=== PATIENT | female | born 1990 | race Caucasian/White ===

== ENCOUNTER 2019-06-09 20:40 | Emergency (ER) | payer OTHER ==
[~2019-06-09] VITALS: Ht 162.6 cm; Wt 59.0 kg
[~2019-06-09 20:40] MED LIST: ACET500; Flomax0.4 MG PO; HYDACE5 PO; IBUP200; KETO10 PO; LEVSOD50 PO; ONDA4 PO; OXYACE5T PO; PROM25 PO; Percocet 5-3251 EACH PO; SULTRIDS PO; TAMS.4ER PO; YAZ BIRTH CONTROL; Zofran Odt4 MG SL
[2019-06-09 21:03] LABS: Source, Urine Clean Catch
[2019-06-09 21:05] LABS: Bilirubin, Urine Neg (Neg); Blood, Urine 5+ (Neg); Glucose Qualitative, Urine Neg (Neg); Ketones, Urine 4+ (Neg); Leukocyte Esterase, Urine 3+ (Neg); Nitrite, Urine Neg (Neg); Protein, Urine 3+ (Neg); Urobilinogen, Urine 1+ (Normal)
[2019-06-09 21:09] LABS: Appearance, Urine Cloudy (Clear); Color, Urine Yellow (P-Yellow)
[2019-06-09 21:16] LABS: Bacteria Few /hpf; Red Blood Cells, Urine TNTC /hpf (0-2); Squamous Epithelial Cells Not Seen /hpf (Few); White Blood Cells, Urine TNTC /hpf (0-5)
[2019-06-09 21:17] LABS: BASOPHILS ABSOLUTE AUTO 0.03 K/mm3 (0.00-0.23); BASOPHILS PERCENT AUTO 0 % (0-2); EOSINOPHILS ABSOLUTE AUTO 0.03 K/mm3 (0.00-0.68); EOSINOPHILS PERCENT AUTO 0 % (0-6); Hematocrit 36.9 % (33.0-51.0); Hemoglobin 12.3 g/dL (11.5-16.0); IMMATURE GRAN ABSOLUTE AUTO 0.06 K/mm3 (0.00-0.10); IMMATURE GRAN PERCENT AUTO 0 % (0-1); LYMPHOCYTES ABSOLUTE AUTO 2.08 K/mm3 (0.84-5.20); LYMPHOCYTES PERCENT AUTO 14 % (21-46); MONOCYTES ABSOLUTE AUTO 0.81 K/mm3 (0.16-1.47); MONOCYTES PERCENT AUTO 6 % (4-13); Mean Corpuscular HGB 30.5 pg (26.0-34.0); Mean Corpuscular HGB Conc 33.3 g/dL (31.5-36.5); Mean Corpuscular Volume 92 fL (80-100); Mean Platelet Volume 9.3 fL (9.1-12.4); NEUTROPHILS ABSOLUTE AUTO 11.56 K/mm3 (1.96-9.15); NEUTROPHILS PERCENT AUTO 79 % (41-73); Platelet Count 241 K/mm3 (150-400); RDW Coefficient Variation 11.5 % (11.7-14.2); RDW Standard Deviation 38.8 fL (35.1-46.3); Red Blood Cell Count 4.03 M/mm3 (3.80-5.20); White Blood Cell Count 14.57 K/mm3 (4.00-11.30)
[2019-06-09 21:34] LABS: Alanine Aminotransfer (ALT/SGP 21 U/L (12-78); Albumin, Blood 4.8 g/dL (3.4-5.0); Albumin/Globulin Ratio 1.5 (0.8-1.8); Alk Phos 67 U/L (50-136); Anion Gap 12 mmol/L (6-16); Aspartate Aminotrans (AST/SGOT 21 U/L (12-37); Bilirubin, Total 0.8 mg/dL (0.1-1.0); Blood Urea Nitrogen 12 mg/dL (8-24); Bun/Creatinine Ratio 17.5 (12.0-20.0); CO2, Blood 23 mmol/L (21-32); Calcium, Blood 9.2 mg/dL (8.5-10.1); Chloride, Blood 107 mmol/L (98-108); Creatinine, Blood 0.68 mg/dL (0.40-1.00); Globulin, Blood 3.2 g/dL (2.2-4.0); Glomerular Filtration Rate >60 (60-); Glucose, Blood 82 mg/dL (70-99); Potassium, Blood 3.3 mmol/L (3.5-5.5); Sodium, Blood 142 mmol/L (136-145)
[2019-06-09] MEDS ORDERED: NITR100CA PO (22:58)
== END 2019-06-09 23:03 | disposition home or self-care (01) ==
LOC: ER 20:40
PROVIDERS: Physician Assistant
DX: N20.0 Calculus of kidney (principal); Z88.0 Allergy status to penicillin; Z88.2 Allergy status to sulfonamides; Z88.8 Allergy status to other drugs, medicaments and biological substances
CPT/HCPCS: 36415; 76770; 80053; 81001; 81025; 85025; 87077; 87086; 87186; 96374; 96375; 99284-25; J1885; J2405

== ENCOUNTER 2020-05-29 20:53 | Emergency (ER) | payer OTHER ==
[~2020-05-29] VITALS: Ht 162.6 cm; Wt 63.0 kg
[~2020-05-29 20:53] MED LIST changes: +NITR100CA PO; +ONDA4ODT MM
[2020-05-29] MEDS ORDERED: POTCIT10 PO (21:15)
[2020-05-29] MEDS ORDERED: Zovirax800 MG PO (22:33)
[2020-05-29] MEDS ORDERED: Prednisone20 MG PO (22:33)
== END 2020-05-29 22:56 | disposition home or self-care (01) ==
LOC: ER 20:53
DX: R20.0 Anesthesia of skin (principal); Z79.899 Other long term (current) drug therapy; Z88.0 Allergy status to penicillin; Z88.2 Allergy status to sulfonamides; Z88.1 Allergy status to other antibiotic agents; Z88.8 Allergy status to other drugs, medicaments and biological substances; Z87.442 Personal history of urinary calculi
CPT/HCPCS: 99283; A9270; J7512

== ENCOUNTER → 2021-01-13 | Outpatient (CLI) | payer OTHER ==
[~2021-01-13] MED LIST changes: +POTCIT10 PO; +Prednisone20 MG PO; +Zovirax800 MG PO
[2021-01-15 19:14] LABS: CORONAVIRUS (COVID19) CSH-NRL Positive (Negative)
== END ==
LOC: LAB 11:55 → LAB SHORT 11:55
PROVIDERS: Physician Assistant Medical
DX: Z20.822 Contact with and (suspected) exposure to COVID-19 (principal); Z88.0 Allergy status to penicillin; Z88.2 Allergy status to sulfonamides; Z88.8 Allergy status to other drugs, medicaments and biological substances
CPT/HCPCS: U0003

== ENCOUNTER → 2022-01-08 | Outpatient (CLI) | payer OTHER | END | disposition home or self-care (01) | LOC: LAB 17:17 | DX: N39.0 Urinary tract infection, site not specified (principal) ==

== ENCOUNTER 2022-12-12 03:01 | Emergency (ER) | payer OTHER ==
[~2022-12-12] VITALS: Ht 162.6 cm; Wt 68.0 kg
[~2022-12-12 03:01] MED LIST changes: +ALYACEN PO; +ASPI81CH PO; +DELESTROGEN; +PRENATAL TABLE1 EAC2 PO; +PROGESTERO50 MG/1 ML IM
[2022-12-12] MEDS ORDERED: PRENATAL TABLE1 EAC2 PO (03:21)
[2022-12-12 03:33] LABS: BASOPHILS ABSOLUTE AUTO 0.02 K/mm3 (0.00-0.23); BASOPHILS PERCENT AUTO 0 % (0-2); EOSINOPHILS ABSOLUTE AUTO 0.03 K/mm3 (0.00-0.68); EOSINOPHILS PERCENT AUTO 0 % (0-6); Hematocrit 33.6 % (33.0-51.0); Hemoglobin 11.6 g/dL (11.5-16.0); IMMATURE GRAN ABSOLUTE AUTO 0.09 K/mm3 (0.00-0.10); IMMATURE GRAN PERCENT AUTO 1 % (0-1); LYMPHOCYTES PERCENT AUTO 10 % (21-46); MONOCYTES PERCENT AUTO 5 % (4-13); Mean Corpuscular HGB 31.4 pg (26.0-34.0); Mean Corpuscular HGB Conc 34.5 g/dL (31.5-36.5); Mean Corpuscular Volume 91 fL (80-100); Mean Platelet Volume 9.1 fL (9.1-12.4); NEUTROPHILS ABSOLUTE AUTO 11.25 K/mm3 (1.96-9.15); NEUTROPHILS PERCENT AUTO 85 % (41-73); Platelet Count 198 K/mm3 (150-400); RDW Coefficient Variation 11.9 % (11.7-14.2); RDW Standard Deviation 39.5 fL (35.1-46.3); White Blood Cell Count 13.29 K/mm3 (4.00-11.30)
[2022-12-12 03:52] LABS: Albumin, Blood 3.5 g/dL (3.4-5.0); Bilirubin, Total 0.4 mg/dL (0.1-1.0); Bun/Creatinine Ratio 19.2 (12.0-20.0); Calcium, Blood 9.2 mg/dL (8.5-10.1); Creatinine, Blood 0.73 mg/dL (0.40-1.00); Globulin, Blood 3.6 g/dL (2.2-4.0); Potassium, Blood 3.9 mmol/L (3.5-5.5); Total Protein, Blood 7.1 g/dL (6.4-8.2)
[2022-12-12 04:17] LABS: Source, Urine Clean Catch
[2022-12-12 04:21] LABS: Bilirubin, Urine Neg (Neg); Blood, Urine 2+ (Neg); Glucose Qualitative, Urine Neg (Neg); Ketones, Urine Neg (Neg); Leukocyte Esterase, Urine Neg (Neg); Nitrite, Urine Neg (Neg); Protein, Urine 1+ (Neg); Specific Gravity, Urine 1.025 (1.003-1.022); Urobilinogen, Urine NORM (Normal)
[2022-12-12 04:42] LABS: Appearance, Urine Clear (Clear); Color, Urine Yellow (P-Yellow)
[2022-12-12 04:48] LABS: White Blood Cells, Urine 0-2 /hpf (0-5)
[2022-12-12 04:49] LABS: Bacteria Mod /hpf; Squamous Epithelial Cells Few /hpf (Few)
[2022-12-12 08:15] VITALS: BP 114/77
[2022-12-12] MEDS ORDERED: CEPH500 PO (08:49)
[2022-12-12] MEDS ORDERED: Percocet 5-3251 EACH PO (08:49)
== END 2022-12-12 09:00 | disposition home or self-care (01) ==
LOC: ER 03:01
PROVIDERS: Emergency Medicine
DX: O26.832 Pregnancy related renal disease, second trimester (principal); N13.2 Hydronephrosis with renal and ureteral calculous obstruction; Z87.442 Personal history of urinary calculi; Z88.0 Allergy status to penicillin; Z88.2 Allergy status to sulfonamides; Z88.8 Allergy status to other drugs, medicaments and biological substances; Z3A.19 19 weeks gestation of pregnancy
CPT/HCPCS: 76770; 80053; 81001; 83690; 84703; 85025; 87086; 96365; 96375; 96376; 99284-25; A9270; J0696; J1170; J2405; J7030

== ENCOUNTER 2023-04-22 00:46 | Inpatient (IN) | payer OTHER ==
[2023-04-22] VITALS (17 sets, daily range): BP systolic 120–142; BP diastolic 63–98
[~2023-04-22] VITALS: Ht 162.6 cm; Wt 78.0 kg
[~2023-04-22 00:46] MED LIST changes: +CEPH500 PO
[2023-04-22 03:32] LABS: BASOPHILS ABSOLUTE AUTO 0.02 K/mm3 (0.00-0.23); BASOPHILS PERCENT AUTO 0 % (0-2); EOSINOPHILS ABSOLUTE AUTO 0.04 K/mm3 (0.00-0.68); EOSINOPHILS PERCENT AUTO 0 % (0-6); Hematocrit 31.9 % (33.0-51.0); Hemoglobin 10.8 g/dL (11.5-16.0); IMMATURE GRAN ABSOLUTE AUTO 0.12 K/mm3 (0.00-0.10); IMMATURE GRAN PERCENT AUTO 1 % (0-1); LYMPHOCYTES ABSOLUTE AUTO 1.88 K/mm3 (0.84-5.20); LYMPHOCYTES PERCENT AUTO 16 % (21-46); MONOCYTES ABSOLUTE AUTO 0.72 K/mm3 (0.16-1.47); MONOCYTES PERCENT AUTO 6 % (4-13); Mean Corpuscular HGB 30.6 pg (26.0-34.0); Mean Corpuscular HGB Conc 33.9 g/dL (31.5-36.5); Mean Corpuscular Volume 90 fL (80-100); Mean Platelet Volume 9.8 fL (9.1-12.4); NEUTROPHILS ABSOLUTE AUTO 8.81 K/mm3 (1.96-9.15); NEUTROPHILS PERCENT AUTO 76 % (41-73); Platelet Count 219 K/mm3 (150-400); RDW Coefficient Variation 12.1 % (11.7-14.2); RDW Standard Deviation 39.7 fL (35.1-46.3); Red Blood Cell Count 3.53 M/mm3 (3.80-5.20); White Blood Cell Count 11.59 K/mm3 (4.00-11.30)
[2023-04-22 11:10] LABS: PCO2 Cord - Arterial 62.1 mmHg (40-50); pH Cord - Arterial 7.23 (7.28-7.35)
--- NOTE | 2023-04-22 11:10 | NUR ---
04/22/23 1110 Elodia Pike VIABLE FEMALE DELIVERED BREECH PRESENTATION AT 1046. WT [id number] 3 OZ; LENGTH - 19IN; HEAD - 14.5IN; CHEST 13IN; CORD SEGEMENT FOR GASES SENT W/MERLY, RT. CORD BLOOD WITH Vin VARELA RN.
[2023-04-22 11:12] LABS: PCO2 Cord - Venous 49.8 mmHg (40-50); PO2 Cord - Venous 16.5 mmHg (28-32); pH Umbilical Cord - Venous 7.31 (7.26-7.35)
[2023-04-23 00:52] VITALS: BP 125/78
[2023-04-23 06:54] LABS: BASOPHILS ABSOLUTE AUTO 0.03 K/mm3 (0.00-0.23); BASOPHILS PERCENT AUTO 0 % (0-2); EOSINOPHILS ABSOLUTE AUTO 0.03 K/mm3 (0.00-0.68); EOSINOPHILS PERCENT AUTO 0 % (0-6); Hematocrit 30.1 % (33.0-51.0); Hemoglobin 10.1 g/dL (11.5-16.0); IMMATURE GRAN PERCENT AUTO 1 % (0-1); LYMPHOCYTES ABSOLUTE AUTO 2.59 K/mm3 (0.84-5.20); LYMPHOCYTES PERCENT AUTO 19 % (21-46); MONOCYTES ABSOLUTE AUTO 0.92 K/mm3 (0.16-1.47); MONOCYTES PERCENT AUTO 7 % (4-13); Mean Corpuscular HGB 30.9 pg (26.0-34.0); Mean Corpuscular HGB Conc 33.6 g/dL (31.5-36.5); Mean Corpuscular Volume 92 fL (80-100); Mean Platelet Volume 9.9 fL (9.1-12.4); NEUTROPHILS PERCENT AUTO 73 % (41-73); Platelet Count 216 K/mm3 (150-400); RDW Standard Deviation 40.2 fL (35.1-46.3); Red Blood Cell Count 3.27 M/mm3 (3.80-5.20); White Blood Cell Count 13.47 K/mm3 (4.00-11.30)
[2023-04-23 07:13] VITALS: BP 120/77
[2023-04-23 12:36] VITALS: BP 127/75
[2023-04-23 16:36] VITALS: BP 122/68
[2023-04-23 19:08] VITALS: BP 133/80
[2023-04-24 00:28] VITALS: BP 125/76
[2023-04-24 04:11] VITALS: BP 134/84
[2023-04-24 07:19] VITALS: BP 121/74
[2023-04-24 09:24] VITALS: BP 123/70
--- NOTE | 2023-04-24 09:39 | NUR ---
ZEB DRSG CHANGED BY CNM D/T DRSG LEAK SIGNAL. PT TOLERATED WELL.
[2023-04-24] MEDS ORDERED: IBUP800 PO (10:25)
[2023-04-24] MEDS ORDERED: Percocet 5-3251 EACH PO (10:25)
== END 2023-04-24 11:40 | disposition home or self-care (01) | DRG 788 ==
LOC: OBS 00:46 → BC 00:50 → OBS 00:58 → BC 00:59
PROVIDERS: Family Medicine; ADMIT Family Medicine
PROC: 4A033R1 Measurement of Arterial Saturation, Peripheral, Percutaneous Approach (ICD-10-PCS; 2023-04-22)
PROC: 10D00Z1 Extraction of Products of Conception, Low, Open Approach (ICD-10-PCS; principal; 2023-04-22 10:00)
DX: O42.02 Full-term premature rupture of membranes, onset of labor within 24 hours of rupture (principal); Z3A.37 37 weeks gestation of pregnancy; Z37.0 Single live birth; O32.1XX0 Maternal care for breech presentation, not applicable or unspecified; O43.123 Velamentous insertion of umbilical cord, third trimester; Z98.890 Other specified postprocedural states; Z88.0 Allergy status to penicillin; Z88.1 Allergy status to other antibiotic agents; Z88.8 Allergy status to other drugs, medicaments and biological substances
CPT/HCPCS: 36415; 82803; 85025; 86850; 86900; 86901; A9270; J0690; J1885; J2371; J2590; J3010; J7120; Q0177